=== PATIENT | male | born 1975 | race African-American/Black ===

== ENCOUNTER → 2020-11-14 | Outpatient (CLI) | payer OTHER ==
--- NOTE | 2020-11-14 15:03 | CARD ---
MR#: [id number] Date of Study: 11/14/2020 Ordering Physician: YASSINE NAZARIO, Referring Physician: YASSINE NAZARIO, Tech: Negrito Osman [facility] APPROVED REPORT EXAM: Two-dimensional and M-mode echocardiogram with Doppler and color Doppler. Other Information Quality : GoodHR: 72bpm Rhythm : NSR INDICATION Hypertension/HCVD RISK FACTORS Hypertension Obesity 2D DIMENSIONS Left Atrium(2D)4.2 (1.6-4.0cm)IVSd1.3 (0.7-1.1cm) Aortic Root(2D)3.1 (2.0-3.7cm)LVDd5.8 (3.9-5.9cm) LVOT Diameter2.2 (1.8-2.4cm)PWd1.3 (0.7-1.1cm) LVDs4.0 (2.5-4.0cm)FS (%) 30.3 % SV94.5 mlLVEF(%)56.9 (>50%) Aortic Valve AoV Peak Jim.148.2cm/sAoV VTI25.3cm AO Peak GR.8.8mmHgLVOT Peak Jim.111.8cm/s AO Mean GR.5mmHgAVA (VMAX)2.89cm2 Mitral Valve MV E Vgziukjz42.3cm/sMV E Peak Gr.3mmHg MV DECEL [id number] A Okupfcry63.5cm/s MV E Mean Gr.1mmHgE/A Ratio0.8 Pulmonary Valve PV Peak Xkgbsjui66.2cm/s Tricuspid Valve TR P. Bnbumhis407dr/sTR Peak Gr.39mmHg Pulmonary Vein S1 Bfzfjiwd61.7cm/sD2 Zbtblory20.7cm/s LEFT VENTRICLE The left ventricle is normal size. There is mild concentric left ventricular hypertrophy. The left ve ntricular systolic function is normal and the ejection fraction is within normal range. The Ejection Fraction is 50-55%. There is normal LV segmental wall motion. Tissue Doppler imaging reveals mild lef t ventricular diastolic dysfunction. No left ventricle thrombus noted on this study. There is no vent ricular septal defect visualized. There is no left ventricular aneurysm. There is no mass noted in th e left ventricle. RIGHT VENTRICLE The right ventricle is normal size. There is normal right ventricular wall thickness. The right ventr icular systolic function is normal. ATRIA The left atrium is mildly dilated. The right atrium size is normal. The interatrial septum is intact with no evidence for an atrial septal defect or patent foramen ovale as noted on 2-D or Doppler imagi ng. AORTIC VALVE The aortic valve is normal in structure and function. Doppler and Color Flow revealed no significant aortic regurgitation. There is no significant aortic valvular stenosis. There is no aortic valvular v egetation. MITRAL VALVE The mitral valve is normal in structure and function. There is no evidence of mitral valve prolapse. There is no mitral valve stenosis. Doppler and Color-flow revealed trace mitral regurgitation. TRICUSPID VALVE The tricuspid valve is normal in structure and function. Doppler and Color Flow revealed trace to mil d tricuspid regurgitation. The PA pressure was estimated at 40 mmHg. There is no tricuspid valve prol apse or vegetation. There is no tricuspid valve stenosis. PULMONIC VALVE There is pulmonic regurgitation. There is no pulmonic valvular stenosis. GREAT VESSELS The aortic root is normal in size. The ascending aorta is normal in size. The IVC is normal in size a nd collapses >50% with inspiration. PERICARDIAL EFFUSION There is no pleural effusion. There is no evidence of significant pericardial effusion. Critical Notification Critical Value: No <Conclusion> The left ventricular systolic function is normal and the ejection fraction is within normal range. Th e Ejection Fraction is 50-55%. There is normal LV segmental wall motion. There is mild concentric left ventricular hypertrophy. Doppler and Color Flow revealed trace to mild tricuspid regurgitation. The PA pressure was estimated at 40 mmHg. Signed by : Jonah Hayden, Electronically Approved : 11/14/2020 15:02:56
== END ==
LOC: ECHO 13:28 → EDSEX 13:28
PROVIDERS: ATTEND Family Medicine
DX: I08.8 Other rheumatic multiple valve diseases (principal); I10 Essential (primary) hypertension
CPT/HCPCS: 93306